=== PATIENT | female | born 1945 | race Caucasian/White ===

== ENCOUNTER 2024-09-06 07:56 | Day surgery (SDC) | payer MEDICARE ==
[2024-09-06] MEDS ORDERED: Sodium Chloride 0.9% 10 ML Syringe FLUSH PRN (08:00)
[2024-09-06] MEDS: Lactated Ringers 1,000 ML IV SCH (08:07)
[2024-09-06] MEDS ORDERED: Midazolam 1 MG/ML 2 ML SDV ONE (08:58)
[2024-09-06] MEDS ORDERED: Propofol 200 MG/20 ML SDV ONE (08:58)
[2024-09-06] MEDS ORDERED: Lactated Ringers 1,000 ML ONE (09:38)
== END 2024-09-06 11:11 | disposition home or self-care (01) ==
LOC: KA.SDS 07:56
PROVIDERS: ATTEND Surgery
DX: K64.8 Other hemorrhoids (principal); K57.31 Diverticulosis of large intestine without perforation or abscess with bleeding; E78.5 Hyperlipidemia, unspecified; Z79.899 Other long term (current) drug therapy; Z88.2 Allergy status to sulfonamides; Z88.0 Allergy status to penicillin
CPT/HCPCS: J2250; J2704; J7120